=== PATIENT | female | born 1955 | race Caucasian/White ===

== ENCOUNTER → 2018-05-12 08:03 | Outpatient (CLI) | payer BC, SELFPAY ==
--- NOTE | 2018-05-12 08:30 | MM_ITS ---
MM Dig screening mamm BI w/CAD CAD Screening COMPARISON: Digital mammograms 04/23/2012 and 12/18/2013 INDICATION: There is no personal or family history of breast cancer TECHNIQUE: Standard CC and MLO images were obtained. R2 CAD reviewed. FINDINGS: Minimal scattered fibroglandular densities are seen in both breast. There is a stable benign-appearing nodular density upper outer quadrant right breast which has been noted be stable on studies going back through 2005. There are few benign-appearing calcifications left breast. There is no suspicious lesion and no suspicious microcalcifications. IMPRESSION: Stable exam no suspicious lesion seen BI-RADS Category: 2 Benign Finding(s) RECOMMENDED FOLLOW-UP: 1YR - 1 YEAR FOLLOW-UP (A letter has been sent to the patient regarding results of the study.)
== END ==
PROVIDERS: Family Provider Family Medicine; PCP Nurse Practitioner; Visit Provider Nurse Practitioner
DX: Z12.31 Encounter for screening mammogram for malignant neoplasm of breast (principal)
CPT/HCPCS: 77067

== ENCOUNTER → 2018-10-10 08:29 | Outpatient (CLI) | payer BC, SELFPAY ==
--- NOTE | 2018-10-10 08:32 | MR_ITS ---
MR hip LT wo con HISTORY: Instability of the left hip, left hip pain, constant pain ITS.REASON: LEFT HIP PAIN ORDERING PHYSICIAN: Gisell Kiran PATIENT AGE: 63 years COMPARISON: 08/13/2016. TECHNIQUE: Routine multiplanar multiecho sequences are performed without contrast. FINDINGS: No fracture or dislocation. There are osteoarthritic changes of the left hip with slight decrease in the joint space. Multiple small cystic areas are present along the acetabular roof anteriorly and may represent subarticular cysts/geodes. There is slight diffuse decreased T1 and increased T2 signal within the lower ilium on the left and superior acetabular region consistent with bone marrow edema. Very slight increased T2 signal present in the femoral head at the subcortical region superiorly. There is a small amount of fluid signal intensity in the left SI joint. IMPRESSION: Subarticular cystic changes of the left acetabular roof with a mild amount of bone marrow edema in the adjacent inferior ilium and ischium. There is only minor decrease in the joint space. There may be minimal edema of the femoral head superiorly. These findings may be due to geodes with osteoarthritis and bone marrow edema. Differential diagnosis would include primary cystic arthrosis of the hip.
== END ==
PROVIDERS: PCP Nurse Practitioner Family; Visit Provider Nurse Practitioner Family
DX: M25.552 Pain in left hip (principal); M25.352 Other instability, left hip
CPT/HCPCS: 73721

== ENCOUNTER → 2018-10-28 09:43 | Outpatient (CLI) | payer BC, SELFPAY ==
--- NOTE | 2018-10-28 09:46 | XR_ITS ---
XR hip LT 2-3V w/pelvis Ordering Physician: Meeta Rivera MD Patient Age: 63 years: Female HISTORY: ITS.REASON: Lt hip arthrosis Left hip pain with weightbearing. TECHNIQUE: Left hip AP and frog-leg view. AP pelvis radiograph COMPARISON : 08/13/2016 left hip study radiograph also MRI of the left hip October 10, 2018. FINDINGS . A collection of subchondral cystic is seen along the roof of the left acetabulum. These features nicely demonstrated on recent MR left hip. There is also Subtle sclerosis along the roof left acetabulum as well on today's plain film study.. These above features are clearly more evident than the 2016 left hip plain film series, reflecting progression of the degenerative changes at the left acetabulum in the interval. . Very very Subtle narrowing of the superior left hip joint space versus right The left femoral head and neck are intact otherwise.. The left femoral head with normal contour normal density. . The right femoral head and neck intact. The right acetabulum is better maintained satisfactory on plain film as well as recent MR. Remainder of osseous pelvis appears intact . I would note degenerative changes the lower L-spine most evident to the right disc space narrowing to right L4/5 L5/S1 with associated facet arthropathy likely present ------- IMPRESSION: 1. Series a subchondral cyst have become apparent along roof of the left acetabulum since 2016 plain film. Suggestion of Very subtle narrowing superior left joint space associated. 2. These features reflect progressive degenerative changes at the left hip since 2016 3.. Degenerative disc changes lower most L-spine noted, most evident to the right .
== END ==
PROVIDERS: PCP Family Medicine; Visit Provider Orthopaedic Surgery
DX: M25.552 Pain in left hip (principal)
CPT/HCPCS: 73502

== ENCOUNTER → 2018-10-31 08:43 | Outpatient (CLI) | payer BC, SELFPAY ==
--- NOTE | 2018-10-31 08:45 | IR_ITS ---
IR fluoro guided needle place CLINICAL INDICATION: Left hip pain ITS.REASON: DJD OF HIP ORDERING PHYSICIAN: Meeta Rivera MD PATIENT AGE: 63 years Comparison: None Fluoroscopy time: 10 seconds FINDINGS: Fluoroscopy was utilized for left hip ejection. One image submitted shows small amount of contrast within the left hip joint along with soft tissue contrast along the intertrochanteric region. IMPRESSION: Fluoroscopy utilized for left hip injection.
--- NOTE | 2018-11-02 10:41 | HMH.PROC ---
[facility] Procedure Note Procedure Note:: Date of Procedure: 10/31/2018 Pre-procedure diagnosis: L hip DJD Post-procedure diagnosis: L hip DJD Procedure: intraarticular corticosteroid injection L hip Performed by: Meeta Rivera MD Division Operations Specialist/s: none Anesthesia: local; 10cc 1% lidocaine w/o epinephrine Estimated Blood Loss: none History of Present Illness: 63 year-old female with left hip pain and radiographic evidence of degenerative joint disease. NSAIDs and activity modification have not helped the pain; she has never had a steroid injection in the hip. I proposed we try an intraarticular steroid injection to see if this alleviates her pain; she is not diabetic and does not have any allergies. Risks, benefits and alternatives to the procedure were discussed with the patient, who vocalized understanding and provided informed consent for the procedure. Procedure Note: The patient presented to the radiology department and changed into a gown, exposing the left hip. Consent was reviewed and signed by both myself and the patient, all questions were answered. The patient was placed supine on the fluoroscopy table and the L hip exposed. The anterior groin/hip and proximal thigh were prepped with chlorhexidine. Timeout was performed. Next, the fluoro machine was brought in over the patient?s L hip and a picture taken to confirm adequate visualization of the joint. I donned a pair of sterile surgical gloves; the remainder of the procedure was performed in a sterile fashion. A 20G spinal needle was held over the L hip to approximate my desired entry point on the skin. Once this was established, a 25G needle was used to infiltrate injection site and estimated needle track with 10cc 1% lidocaine w/o epinephrine. Once the injection site was anesthetized, the spinal needle was advanced through the same puncture site and deeper towards the L hip joint. Using fluoro, it was confirmed that the needle was advanced until it was at the level of the femoral neck. The stylus was removed from the spinal needle and 2cc of iodinated contrast solution was injected through the spinal needle. Fluoro was taken again, and the dye confirmed intra-capsular placement of the spinal needle, indicating a successful intraarticular injection. The syringe with contrast was removed, keeping the spinal needle in place, and 40mg Kenalog with 2cc 1% lidocaine w/o epinephrine was injected through the needle into the hip joint. A final fluoro picture was taken, confirming successful intraarticular injection. The spinal needle was removed from the hip and a band-aid was placed over the injection site. Specimens: none Condition/Disposition: good / home Complications: none
== END ==
PROVIDERS: PCP Orthopaedic Surgery; Visit Provider Orthopaedic Surgery
DX: M16.12 Unilateral primary osteoarthritis, left hip (principal)
CPT/HCPCS: 20610; 77002; Q9967

== ENCOUNTER → 2019-04-20 14:00 | Outpatient (CLI) | payer BC, SELFPAY ==
--- NOTE | 2019-04-20 14:30 | XR_ITS ---
XR chest 2V HISTORY: ITS.REASON: SOB, ORDERING PHYSICIAN: Gisell Kiran APRN PATIENT AGE: 63 years COMPARISON: None FINDINGS: There is mild cardiomegaly without failure. Lungs are clear bilaterally. No lobar consolidation or collapse. Degenerative changes are present in the thoracic spine. IMPRESSION: Cardiomegaly otherwise negative.
== END ==
PROVIDERS: PCP Nurse Practitioner Family; Visit Provider Nurse Practitioner Family
DX: Z01.818 Encounter for other preprocedural examination (principal)
CPT/HCPCS: 71046; 93005

== ENCOUNTER 2019-09-02 12:00 | Outpatient (RCR) | payer BC, SELFPAY | END 2019-09-21 16:04 | disposition home or self-care (01) | LOC: PT.CARL 12:00 | PROVIDERS: Visit Provider Orthopaedic Surgery | DX: Z96.642 Presence of left artificial hip joint (principal); M25.552 Pain in left hip | CPT/HCPCS: 97010; 97110; 97112; 97116; 97163 ==

== ENCOUNTER → 2019-09-08 07:38 | Outpatient (CLI) | payer BC, SELFPAY ==
--- NOTE | 2019-09-08 07:40 | MM_ITS ---
PROCEDURE: MM DIG SCREENING MAMM BI W/CAD Patient Age:64Y CLINICAL INDICATION: SCREENING routine screening. No hormones but no new complaints. Noncontributory family history. Patient has had a previous biopsy needle biopsy right breast COMPARISON: DIGMAMMDX MAMMOGRAM DX-FINANCIAL WRITER N/C from 12/21/2003 DIGMAMMS MAMMOGRAM SCREEN-FINANCIAL WRITER N/C from 12/26/2005 [facility] DIGITAL MAMM-SCREEN BILATERAL from 07/07/2010 DMDXUAVL DIG MAMM-DX UNI ADD VIEWS-LT from 09/08/2010 DIGITAL MAMM-SCREEN BILATE from 04/23/2012 [facility] DIG MAMM-SCREEN SONJA from 12/18/2013 [facility] MM Dig screening mamm BI w/CAD from 05/12/2018 TECHNIQUE: Standard CC and MLO images were obtained. R2 CAD reviewed. FINDINGS: Qsoy-hd-yzyygngo density of residual breast tissue. No significant new findings either breast but the the Nodular density at the right breast is been present on studies dating back to at least 2013,. Two thousand six but it is actually smaller than 2005.-no progression on recent years. Given this longstanding stability this can be followed. The left breast appear stable and unchanged with no significant new areas of concern. Mom the 2009 IMPRESSION: . Stable mammogram; with no new areas of significant concern Stable 1 cm nodular density superior right breast unchanged since studies dating back to 2005-can be followed safely Bilateral follow-up mammogram 1 year recommended and encouraged BI-RAD Category: 2 Benign Finding(s) FOLLOW-UP: 1YR 1 Year Follow-up (A letter has been sent to the patient regarding results of the study.) Dictated by: Rodríguez Crowder MD 09/08/2019 16:05 Electronically signed by Rodríguez Crowder MD in [place] 09/08/2019 16:05
== END ==
PROVIDERS: PCP Nurse Practitioner Family; Visit Provider Nurse Practitioner Family
DX: Z12.31 Encounter for screening mammogram for malignant neoplasm of breast (principal)
CPT/HCPCS: 77067

== ENCOUNTER → 2021-10-13 09:22 | Outpatient (CLI) | payer BC, SELFPAY ==
--- NOTE | 2021-10-13 09:27 | XR_ITS ---
PROCEDURE: XR DEXA AXIAL SKELETON CLINICAL HISTORY: POST MENOPAUSAL COMPARISON: No exams were available for comparison FINDINGS: The right hip BMD is 0.991 with a T-score of 1.3. The lumbar spine BMD is 1.57 with a T-score of 4.8. Radius 1/3 density is 0.685 with T-score of -0.1 IMPRESSION: This patient is considered normal according to the World Health Organization criteria. Fracture risk is low. Based on these results a follow-up exam is recommended in 2 year. Dictated by: Neel Sanchez MD 10/13/2021 13:16 Neel Sanchez MD in [place] 10/13/2021 13:16
--- NOTE | 2021-10-13 09:27 | MM_ITS ---
PROCEDURE INFORMATION: Exam: MG Bilateral Screening 3D Mammography Exam date and time: 10/13/2021 9:27 AM Age: 66 years old Clinical indication: Encounter for screening mammogram for malignant neoplasm of breast TECHNIQUE: Imaging protocol: Bilateral screening tomosynthesis and 2D mammography including computer-aided detection (CAD) when performed. COMPARISON: 1. MG MM DIG SCREENING MAMM BI W/CAD 09/08/2019 8:09 AM 2. MG [facility] MM Dig screening mamm BI w/CAD 05/12/2018 8:43 AM FINDINGS: MAMMOGRAPHY: Breast composition: The breast tissue is composed of scattered areas of fibroglandular density. Mass: No suspicious masses. Architectural distortion: None. Calcifications: No suspicious calcifications. Asymmetric density: None. Skin thickening: None. Axillary adenopathy: None. IMPRESSION: No mammographic evidence of malignancy. Annual screening is recommended unless otherwise clinically indicated. ASSESSMENT: BI-RADS Category 1: Negative
== END ==
PROVIDERS: PCP Nurse Practitioner Family; Visit Provider Nurse Practitioner Family
DX: Z12.31 Encounter for screening mammogram for malignant neoplasm of breast (principal); Z13.820 Encounter for screening for osteoporosis; Z78.0 Asymptomatic menopausal state
CPT/HCPCS: 77063; 77067; 77080